=== PATIENT | female | born 1980 | race Asian ===

== ENCOUNTER → 2024-05-04 17:56 | Outpatient (REF) | payer OTHER, SELFPAY | LOC: WDC 17:56 | PROVIDERS: ATTENDING PHYSICIAN Nurse Practitioner Adult Health | DX: Z12.31 Encounter for screening mammogram for malignant neoplasm of breast (principal) | CPT/HCPCS: 77063; 77067 ==

== ENCOUNTER → 2025-04-01 09:33 | Outpatient (REF) | payer OTHER, SELFPAY ==
[2025-04-01 10:52] LABS: Albumin 5.0 g/dl (3.5-5.0); Blood Urea Nitrogen 9 mg/dl (7-17); Calcium 9.5 mg/dl (8.4-10.2); Carbon Dioxide 27 mmol/L (22-30); Chloride 104 mmol/L (98-107); Glucose 100 mg/dl (70-99); Potassium 3.8 mmol/L (3.5-5.1); Sodium 140 mmol/L (135-145); eGFR > 60.00
[2025-04-02 16:32] LABS: Magnesium, RBC's Result 5.6 mg/dL (3.6-7.5)
== END ==
LOC: REG 09:33
PROVIDERS: ATTENDING PHYSICIAN Nurse Practitioner Adult Health
DX: E83.51 Hypocalcemia (principal); E87.5 Hyperkalemia
CPT/HCPCS: 36415; 80048; 82040; 83735; 83970; 84100

== ENCOUNTER → 2025-06-11 08:50 | Outpatient (REF) | payer OTHER, SELFPAY | LOC: WDC 08:50 | PROVIDERS: ATTENDING PHYSICIAN Nurse Practitioner Adult Health | DX: Z12.31 Encounter for screening mammogram for malignant neoplasm of breast (principal) | CPT/HCPCS: 77063; 77067 ==